=== PATIENT | male | born 1960 | race Two or more races ===

== ENCOUNTER 2024-03-19 15:06 | Emergency (ER) | payer MEDICARE, MEDICAID ==
[~2024-03-19] VITALS: Ht 188 cm; Wt 90.0 kg
[~2024-03-19 15:06] MED LIST: ASPI-1406 PO; MAGN400C MT; METO-385 PO
[2024-03-19 15:19] VITALS: BP 128/78; PULSE 72; RESP 18; TEMP 98; O2SAT 99
[2024-03-19] MEDS ORDERED: PANTOPRAZOLE SODIUM 40 MG/VIAL IV ONE (16:00)
[2024-03-19 16:24] LABS: BASOPHILS % 0.5 % (0.0-2.0); EOSINOPHILS % 0.4 % (0.0-5.0); HEMATOCRIT. 46.5 % (42.0-52.0); HEMOGLOBIN. 15.8 g/dL (14.0-18.0); LYMPHOCYTES % 13.1 % (20.0-50.0); MEAN CORPUSCULAR HEMOGLOBIN 30.8 pg (28.0-32.0); MEAN CORPUSCULAR VOLUME 90.6 fL (80.0-94.0); MEAN PLATELET VOLUME 8.4 fl (7.4-10.4); MONOCYTES % 6.2 % (2.0-8.0); NEUTROPHILS % 79.8 % (40.0-76.0); PLATELET 183 x1000/uL (130-400); RED BLOOD CELL COUNT 5.13 mill/uL (4.7-6.1); RED CELL DISTRIBUTION WIDTH 12.4 % (11.6-14.6); WHITE BLOOD COUNT 10.4 x1000/uL (4.5-11.0)
[2024-03-19 16:32] LABS: CARBON DIOXIDE 28 mEq/L (21-32); CHLORIDE 108 mEq/L (98-107); POTASSIUM 3.9 mEq/L (3.5-5.1); SODIUM 142 mEq/L (136-145)
[2024-03-19 16:33] LABS: CALCIUM 9.7 mg/dL (8.7-10.4)
[2024-03-19 16:34] LABS: PARTIAL THROMBOPLASTIN TIME 24.8 sec (23.4-31.0); PROTHROMBIN TIME 11.3 sec (9.6-11.0)
[2024-03-19 16:37] LABS: CREATININE 1.3 mg/dL (0.6-1.3)
[2024-03-19 16:38] LABS: GLUCOSE 88 mg/dL (70-105); UREA NITROGEN BLOOD 11 mg/dL (9-23)
[2024-03-19 16:39] LABS: ALANINE AMINOTRANSFERASE 7 IU/L (10-49); ASPARTATE AMINOTRANSFERASE 11 IU/L (<34)
[2024-03-19 16:40] LABS: ALBUMIN 4.2 g/dL (3.2-4.8); BILIRUBIN DIRECT 0.2 mg/dL (<=3.0); BILIRUBIN TOTAL 0.7 mg/dL (0.1-1.0); PROTEIN TOTAL 6.4 g/dL (6.0-8.3)
[2024-03-19 16:41] LABS: ETHANOL BLOOD < 10 mg/dL (<10)
[2024-03-19] MEDS: SODIUM CHLORIDE 0.9% 1,000 ML IV ONE (21:26)
[2024-03-19] MEDS: PANTOPRAZOLE SODIUM 40 MG/VIAL IV NR (23:25)
[2024-03-19] MEDS: PANTOPRAZOLE 80 MG in SODIUM CHLORIDE 0.9% 100 ML IV SCH (23:25)
[2024-03-20] MEDS: IOHEXOL-350 100 ML BOTTLE ONE (00:08)
[2024-03-20] MEDS ORDERED: LOPE2CAP MT (00:52)
[2024-03-20 04:03] LABS: HEMATOCRIT 43.2 % (42.0-52.0); HEMOGLOBIN 14.6 g/dL (14.0-18.0)
== END 2024-03-20 02:09 | disposition home or self-care (01) ==
LOC: ER 15:06
DX: K62.5 Hemorrhage of anus and rectum (principal); F03.90 Unspecified dementia, unspecified severity, without behavioral disturbance, psychotic disturbance, mood disturbance, and anxiety; I10 Essential (primary) hypertension; Z79.82 Long term (current) use of aspirin; Z79.899 Other long term (current) drug therapy
CPT/HCPCS: 80076; 80048; 80320; 83880; 85025; 85610; 85730; 86850; 86900; 86901; 36415 ×2; 74174; 71045; 93005; 96361; 96365; 96366; 99285; 85014; 85018; Q9967; J2470; J7050; J7030; 96368; G0480